=== PATIENT | female | born 1945 ===

== ENCOUNTER 2018-02-01 11:10 | Day surgery (SDC) | payer OTHER, MEDICARE ==
[2018-02-01] MEDS ORDERED: ACETAZOLAMIDE 250 MG PO ONE (11:39)
[2018-02-01] MEDS: CYCLOPENTOLATE 1% SOL ONE ×2 (11:48→12:00)
[2018-02-01] MEDS: PHENYLEPHRINE HCL 10% OPHTHAL SOL ONE ×2 (11:48→12:00)
[2018-02-01] MEDS: PROPARACAINE HCL 0.5% OPHTHALMIC SOL ONE ×3 (11:48→12:25)
[2018-02-01] MEDS: KETOROLAC 0.5% OPTH 60 DROP SOL ONE ×2 (11:49→12:00)
[2018-02-01] MEDS ORDERED: MIDAZOLAM 2 MG/2 ML SOL ONE (11:53)
[2018-02-01] MEDS ORDERED: FENTANYL 100MCG/2ML SOL ONE (11:53)
[2018-02-01] MEDS ORDERED: BSS 500 ML 500 ML IR ONE (12:19)
[2018-02-01] MEDS ORDERED: POVIDONE IODINE 5% SOL ONE (12:19)
[2018-02-01] MEDS ORDERED: LIDOCAINE HCL 1% MPF 30 SOL ONE (12:19)
[2018-02-01] MEDS ORDERED: IMPRIMIS ONE (12:19)
[2018-02-01] MEDS ORDERED: OFLOXACIN 0.3% OPHTHAL 1 DROP SOL LEFTEYE ONE (12:50)
[2018-02-01 13:07] VITALS: BP 166/81; PULSE 70; RESP 20; TEMP 97.3; O2SAT 95
== END 2018-02-01 13:20 | disposition home or self-care (01) | DRG 125 ==
LOC: SURG 11:10
PROVIDERS: ATTEND Ophthalmology
DX: H25.89 Other age-related cataract (principal)
CPT/HCPCS: J2250; J3010; A9270-GY; J2001